=== PATIENT | female | born 1975 | race Caucasian/White ===

== ENCOUNTER 2020-01-20 02:51 | Inpatient (IN) | payer BC, OTHER ==
[~2020-01-20] VITALS: Ht 170.2 cm; Wt 117.6 kg
[2020-01-20] MEDS ORDERED: PROPOFOL 100 ML IV ONE (02:54)
[2020-01-20] MEDS ORDERED: PROPOFOL 100 ML IV PRN (03:00)
[2020-01-20] MEDS ORDERED: NOREPINEPHRINE 8 MG in SODIUM CHLORIDE 0.9% 242 ML IV PRN ×2 (03:00→06:31)
--- NOTE | 2020-01-20 03:22 | NUR ---
: Reagan Sweeney [phone]
--- NOTE | 2020-01-20 03:29 | NUR ---
LEVAPHED STOPED TO GET A ACCURATE PT B/P BASELINE. PT B/P MAP AT 73 AT THIS TIME ON 10MCG/KG/MIN PROPOFOL
[2020-01-20] MEDS ORDERED: PLEASE ENTER HEIGHT AND WEIGHT MC SCH (03:30)
[2020-01-20] MEDS ORDERED: PLEASE ENTER ALLERGIES MC SCH (03:30)
--- NOTE | 2020-01-20 04:20 | NUR ---
PT RETURNED BACK FROM CT WITH OUT INCEDENT. PT RESTING SUPINE ON BED ON VENT. PT B/P REMAINS ABOVE A MAP OF 65 WITHOUT LEVAPHED
--- NOTE | 2020-01-20 04:40 | NUR ---
PHILIPPE STATED "THAT THEY WHERE UNAWARE OF ANY MEDICATIONS THAT THE PT TAKES"
[2020-01-20] MEDS ORDERED: ACETAMINOPHEN 325 MG TABLET PO PRN (06:00)
[2020-01-20] MEDS ORDERED: ENOXAPARIN 30 MG/0.3 ML SQ SCH (06:00)
[2020-01-20] MEDS ORDERED: LACTATED RINGERS 1,000 ML IV SCH (06:00)
[2020-01-20] MEDS ORDERED: MAGNESIUM SULFATE/D5W 100 ML IVPB ONE (06:00)
[2020-01-20] MEDS ORDERED: SENNA/DOCUSATE TABLET NG PRN (07:00)
[2020-01-20] MEDS ORDERED: DEXTROSE 4 GM TAB.CHEW PO PRN (07:00)
[2020-01-20] MEDS ORDERED: LACTULOSE 20 GM/30 ML UDC NG PRN (07:00)
[2020-01-20] MEDS ORDERED: BISACODYL 10 MG SUPP PR PRN (07:00)
[2020-01-20] MEDS ORDERED: LIDOCAINE-MPF 1%, 2ML ENDO PRN (07:00)
[2020-01-20] MEDS ORDERED: SENNA 176 MG/5 ML ORAL SOL NG PRN (07:00)
[2020-01-20] MEDS ORDERED: DEXTROSE 50%, 50ML SYRINGE IVPush PRN (07:00)
[2020-01-20] MEDS ORDERED: GLUCAGON 1 MG IM PRN (07:00)
[2020-01-20] MEDS ORDERED: PHARMACY MAY ADJ FOR RENAL FX MC SCH (07:00)
[2020-01-20] MEDS ORDERED: HEPARIN 5,000 UNITS/ML, 1ML SQ SCH (07:00)
[2020-01-20 07:53] LABS: BASOPHILS # (AUTO) 0.07 x10^3/uL (0-0.1); BASOPHILS % (AUTO) 1 % (0-1); EOSINOPHILS # (AUTO) 0.09 x10^3/uL (0-0.4); EOSINOPHILS % (AUTO) 1 % (1-7); LYMPHOCYTES # (AUTO) 1.52 x10^3/uL (1-3.4); LYMPHOCYTES % (AUTO) 12 % (22-44); MD NO; MEAN CORPUSCULAR HEMOGLOBIN 31.5 pg (27.0-34.8); MEAN CORPUSCULAR HGB CONC 32.8 g/dL (32.4-35.8); MEAN CORPUSCULAR VOLUME 95.8 fL (80-100); MEAN PLATELET VOLUME 9.7 fL (7.4-10.4); MONOCYTES # (AUTO) 0.65 x10^3/uL (0.2-0.8); MONOCYTES % (AUTO) 5 % (2-9); NEUTROPHILS # (AUTO) 9.96 x10^3/uL (1.8-6.8); NEUTROPHILS % (AUTO) 81 % (42-75); PLATELET COUNT 208 x10^3/uL (130-400); RED BLOOD COUNT 4.27 x10^6/uL (3.82-5.3); RED CELL DISTRIBUTION WIDTH 13.6 % (9.6-15.2)
[2020-01-20 08:04] LABS: ANION GAP 7 mmol/L (5-15); CHLORIDE 111 mmol/L (98-107); CREATININE 0.75 mg/dL (0.55-1.02); SALICYLATE LEVEL 2.8 mg/dL (2.8-20.0)
[2020-01-20 08:07] LABS: TRIGLYCERIDES 100 mg/dL (50-200); TROPONIN I < 0.015 ng/mL (0.000-0.045)
[2020-01-20] MEDS ORDERED: ALBUTEROL/IPRATROPIUM 2.5MG/0.5MG, 3 ML INLINE SCH (08:30)
[2020-01-20 08:34] LABS: ACETONE, SERUM Negative (Negative)
[2020-01-20] MEDS ORDERED: FAMOTIDINE 20 MG/2 ML IVPush SCH (09:00)
[2020-01-20] MEDS: PANTOPRAZOLE 40 MG IV IV SCH (09:26)
[2020-01-20] MEDS: SODIUM CHLORIDE FLUSH 10ML SYR IVF SCH ×2 (09:27→21:46)
[2020-01-20] MEDS: ENOXAPARIN 40 MG/0.4 ML SQ SCH (09:27)
[2020-01-20] MEDS: FENTANYL PF 100 MCG/2ML IVPush PRN ×3 (09:55→18:47)
[2020-01-20] MEDS: PROPOFOL 100 ML IV PRN ×5 (09:56→22:26)
[2020-01-20] MEDS: ALBUTEROL/IPRATROPIUM 2.5MG/0.5MG, 3 ML INLINE SCH ×4 (10:10→22:33)
[2020-01-20 11:06] LABS: AMPHETAMINE SCREEN, URINE Positive (Negative); BARBITURATE SCREEN, URINE Negative (Negative); BENZODIAZEPINE SCREEN, URINE Positive (Negative); CANNABINOID SCREEN, URINE Negative (Negative); COCAINE SCREEN, URINE Negative (Negative); METHADONE SCREEN, URINE Negative (Negative); OPIATE SCREEN, URINE Negative (Negative)
[2020-01-20] MEDS ORDERED: SODIUM CHLORIDE 0.9% 1,000ML IVBOLUS ONE (12:00)
[2020-01-20] MEDS: AMPICILLIN/SULBACTAM 3 GM in SODIUM CHLORIDE 0.9% 100 ML IV SCH ×3 (12:06→23:28)
[2020-01-20 12:31] LABS: ALBUMIN 3.1 g/dL (3.4-5.0)
[2020-01-20 12:33] LABS: BILIRUBIN, DIRECT 0.1 mg/dL (0.1-0.2)
[2020-01-20 12:34] LABS: TROPONIN I < 0.015 ng/mL (0.000-0.045)
[2020-01-20 12:35] LABS: BILIRUBIN,INDIRECT 0.2 mg/dL (0.0-2.0); BILIRUBIN,TOTAL 0.3 mg/dL (0.2-1.0)
[2020-01-20] MEDS: FOLIC ACID 1 MG, THIAMINE 200 MG, MVI ADULT 10 ML in DEXTROSE 5% 1,000 ML IV SCH (15:19)
[2020-01-20] MEDS ORDERED: NICOTINE 21 MG/24 HR PATCH.TD24 TD ONE (20:00)
[2020-01-20] MEDS: MIDAZOLAM HCL 50 MG in SODIUM CHLORIDE 0.9% 40 ML IV PRN ×2 (20:19→22:26)
[2020-01-20] MEDS ORDERED: ZIPRASIDONE 20 MG INJ IM ONE ×2 (23:04→23:30)
[2020-01-21] MEDS: LORazepam 2 MG/ML, 1ML IM PRN ×4 (02:18→07:47)
[2020-01-21] MEDS: ALBUTEROL/IPRATROPIUM 2.5MG/0.5MG, 3 ML INLINE SCH ×6 (02:23→23:15)
[2020-01-21] MEDS ORDERED: LORazepam 2 MG/ML, 1ML IM PRN (03:30)
[2020-01-21 04:30] LABS: MEAN CORPUSCULAR HEMOGLOBIN 31.6 pg (27.0-34.8); MEAN CORPUSCULAR HGB CONC 33.6 g/dL (32.4-35.8); MEAN CORPUSCULAR VOLUME 94.2 fL (80-100); MEAN PLATELET VOLUME 9.9 fL (7.4-10.4); PLATELET COUNT 163 x10^3/uL (130-400); RED BLOOD COUNT 4.04 x10^6/uL (3.82-5.3); RED CELL DISTRIBUTION WIDTH 14.2 % (9.6-15.2)
[2020-01-21 04:37] LABS: ALBUMIN 3.1 g/dL (3.4-5.0); ANION GAP 9 mmol/L (5-15); CALCIUM 8.6 mg/dL (8.5-10.1); CHLORIDE 119 mmol/L (98-107); CREATININE 0.99 mg/dL (0.55-1.02)
[2020-01-21 04:54] LABS: BASOPHILS # (AUTO) 0.03 x10^3/uL (0-0.1); BASOPHILS % (AUTO) 0 % (0-1); EOSINOPHILS # (AUTO) 0.14 x10^3/uL (0-0.4); EOSINOPHILS % (AUTO) 1 % (1-7); LYMPHOCYTES # (AUTO) 1.29 x10^3/uL (1-3.4); LYMPHOCYTES % (AUTO) 7 % (22-44); MD SCAN; MONOCYTES # (AUTO) 0.95 x10^3/uL (0.2-0.8); MONOCYTES % (AUTO) 6 % (2-9); NEUTROPHILS # (AUTO) 15.04 x10^3/uL (1.8-6.8); NEUTROPHILS % (AUTO) 86 % (42-75)
[2020-01-21 05:13] VITALS: BP 120/50
[2020-01-21] MEDS ORDERED: DEXMEDETOMIDINE 200 MCG/2 ML NAS ONE (09:00)
[2020-01-21] MEDS ORDERED: HALOPERIDOL 5 MG/ML ONE (10:08)
[2020-01-21] MEDS ORDERED: HALOPERIDOL 5 MG/ML IV ONE (10:10)
[2020-01-21] MEDS ORDERED: MIDAZOLAM HCL 50 MG in SODIUM CHLORIDE 0.9% 40 ML IV PRN (11:11)
[2020-01-21] MEDS: PROPOFOL 100 ML IV PRN ×3 (11:12→17:05)
[2020-01-21] MEDS: PANTOPRAZOLE 40 MG IV IV SCH (11:23)
[2020-01-21] MEDS: ENOXAPARIN 40 MG/0.4 ML SQ SCH (11:23)
[2020-01-21] MEDS: SODIUM CHLORIDE FLUSH 10ML SYR IVF SCH ×2 (11:23→20:04)
[2020-01-21] MEDS ORDERED: SODIUM CHLORIDE 0.9%, 500ML IVBOLUS ONE (11:30)
[2020-01-21] MEDS ORDERED: PHARMACY MAY ADJ FOR RENAL FX MC SCH (11:30)
[2020-01-21] MEDS ORDERED: PROPOFOL 10 MG/ML, 20ML IVPush ONE (11:30)
[2020-01-21] MEDS ORDERED: LIDOCAINE-MPF 1%, 2ML ENDO PRN (11:30)
[2020-01-21] MEDS ORDERED: SENNA/DOCUSATE TABLET NG PRN (11:30)
[2020-01-21] MEDS ORDERED: HALOPERIDOL 5 MG/ML IV PRN (11:30)
[2020-01-21] MEDS ORDERED: SUCCINYLCHOLINE 20 MG/ML, 10ML IVPush ONE (11:30)
[2020-01-21] MEDS: AMPICILLIN/SULBACTAM 3 GM in SODIUM CHLORIDE 0.9% 100 ML IV SCH ×2 (12:16→19:44)
[2020-01-21 12:32] LABS: ANION GAP 8 mmol/L (5-15); CALCIUM 7.9 mg/dL (8.5-10.1); CHLORIDE 122 mmol/L (98-107)
[2020-01-21 12:34] LABS: TROPONIN I 0.116 ng/mL (0.000-0.045)
[2020-01-21] MEDS: FOLIC ACID 1 MG, THIAMINE 200 MG, MVI ADULT 10 ML in DEXTROSE 5% 1,000 ML IV SCH (13:05)
[2020-01-21] MEDS ORDERED: PROPOFOL 10 MG/ML, 100ML IV ONE (16:00)
[2020-01-21] MEDS ORDERED: PROPOFOL 10 MG/ML, 20ML ONE (16:00)
[2020-01-21] MEDS ORDERED: SUCCINYLCHOLINE 20 MG/ML, 10ML ONE (16:00)
[2020-01-21] MEDS ORDERED: ARIPIPRAZOLE 10 MG TABLET PO ONE (17:00)
[2020-01-21] MEDS ORDERED: VANCOMYCIN PER PHARMACY MC PRN (17:00)
[2020-01-21] MEDS ORDERED: LAMO200T6 PO (17:01)
[2020-01-21] MEDS ORDERED: CARI1.5C2 PO (17:01)
[2020-01-21] MEDS ORDERED: LISD30CA5 PO (17:01)
[2020-01-21] MEDS ORDERED: PHARMACOKINETIC CONSULTATION MC ONE (17:30)
[2020-01-21] MEDS ORDERED: VANCOMYCIN 2,500 MG in SODIUM CHLORIDE 0.9% 500 ML IV ONE (17:30)
[2020-01-21] MEDS ORDERED: PHARMACOKINETIC MONITORING MC PRN (17:30)
[2020-01-21 19:03] LABS: TROPONIN I 0.055 ng/mL (0.000-0.045)
[2020-01-21] MEDS: LAMOTRIGINE 200 MG TABLET PO SCH (20:04)
[2020-01-21] MEDS: ENOXAPARIN 30 MG/0.3 ML SQ SCH (20:04)
[2020-01-22] MEDS: PROPOFOL 100 ML IV PRN ×8 (00:42→22:54)
[2020-01-22] MEDS: AMPICILLIN/SULBACTAM 3 GM in SODIUM CHLORIDE 0.9% 100 ML IV SCH ×4 (02:09→20:10)
[2020-01-22] MEDS: ALBUTEROL/IPRATROPIUM 2.5MG/0.5MG, 3 ML INLINE SCH ×6 (02:20→22:08)
[2020-01-22 04:49] LABS: ALANINE AMINOTRANSFERASE 28 U/L (12-78); ALBUMIN 2.7 g/dL (3.4-5.0); ANION GAP 6 mmol/L (5-15); CHLORIDE 115 mmol/L (98-107); CREATININE 0.66 mg/dL (0.55-1.02)
[2020-01-22 04:52] LABS: ALKALINE PHOSPHATASE 51 U/L (45-117); BILIRUBIN,TOTAL 0.4 mg/dL (0.2-1.0); TOTAL PROTEIN 5.9 g/dL (6.4-8.2)
[2020-01-22 04:55] LABS: BASOPHILS # (AUTO) 0.05 x10^3/uL (0-0.1); BASOPHILS % (AUTO) 1 % (0-1); EOSINOPHILS # (AUTO) 0.26 x10^3/uL (0-0.4); EOSINOPHILS % (AUTO) 3 % (1-7); LYMPHOCYTES # (AUTO) 1.59 x10^3/uL (1-3.4); LYMPHOCYTES % (AUTO) 17 % (22-44); MD NO; MEAN CORPUSCULAR HEMOGLOBIN 31.7 pg (27.0-34.8); MEAN CORPUSCULAR HGB CONC 33.6 g/dL (32.4-35.8); MEAN CORPUSCULAR VOLUME 94.2 fL (80-100); MEAN PLATELET VOLUME 9.4 fL (7.4-10.4); MONOCYTES # (AUTO) 0.74 x10^3/uL (0.2-0.8); MONOCYTES % (AUTO) 8 % (2-9); NEUTROPHILS # (AUTO) 6.89 x10^3/uL (1.8-6.8); NEUTROPHILS % (AUTO) 72 % (42-75); PLATELET COUNT 234 x10^3/uL (130-400); RED BLOOD COUNT 3.74 x10^6/uL (3.82-5.3); RED CELL DISTRIBUTION WIDTH 14.3 % (9.6-15.2)
[2020-01-22] MEDS: VANCOMYCIN 2,000 MG in SODIUM CHLORIDE 0.9% 500 ML IV SCH ×2 (08:05→20:57)
[2020-01-22] MEDS: ENOXAPARIN 30 MG/0.3 ML SQ SCH ×2 (08:25→21:18)
[2020-01-22] MEDS: LAMOTRIGINE 200 MG TABLET PO SCH ×2 (08:25→21:18)
[2020-01-22] MEDS: ARIPIPRAZOLE 10 MG TABLET PO SCH (08:25)
[2020-01-22] MEDS: PANTOPRAZOLE 40 MG IV IV SCH (08:25)
[2020-01-22] MEDS: SODIUM CHLORIDE FLUSH 10ML SYR IVF SCH ×2 (08:27→21:18)
[2020-01-22] MEDS ORDERED: POTASSIUM CHLORIDE 10% 40 MEQ/30 ML UDC PO ONE (09:30)
[2020-01-22] MEDS: FENTANYL PF 100 MCG/2ML IVPush PRN ×2 (10:26→16:14)
[2020-01-22] MEDS: FOLIC ACID 1 MG, THIAMINE 200 MG, MVI ADULT 10 ML in DEXTROSE 5% 1,000 ML IV SCH (12:07)
[2020-01-22] MEDS ORDERED: HALOPERIDOL 5 MG/ML ONE (17:19)
[2020-01-22] MEDS: HALOPERIDOL 5 MG/ML IV PRN (17:20)
[2020-01-22] MEDS ORDERED: LORazepam 2 MG/ML, 1ML IVPush PRN (17:30)
[2020-01-22] MEDS: MIDAZOLAM HCL 50 MG in SODIUM CHLORIDE 0.9% 40 ML IV PRN (20:08)
[2020-01-23] MEDS: PROPOFOL 100 ML IV PRN ×3 (01:11→07:02)
[2020-01-23] MEDS: ALBUTEROL/IPRATROPIUM 2.5MG/0.5MG, 3 ML INLINE SCH ×2 (02:15→06:15)
[2020-01-23] MEDS: AMPICILLIN/SULBACTAM 3 GM in SODIUM CHLORIDE 0.9% 100 ML IV SCH ×4 (02:42→20:28)
[2020-01-23] MEDS: MIDAZOLAM HCL 50 MG in SODIUM CHLORIDE 0.9% 40 ML IV PRN (02:50)
[2020-01-23 03:56] LABS: BASOPHILS # (AUTO) 0.02 x10^3/uL (0-0.1); BASOPHILS % (AUTO) 0 % (0-1); EOSINOPHILS # (AUTO) 0.56 x10^3/uL (0-0.4); EOSINOPHILS % (AUTO) 7 % (1-7); LYMPHOCYTES # (AUTO) 1.42 x10^3/uL (1-3.4); LYMPHOCYTES % (AUTO) 18 % (22-44); MD NO; MEAN CORPUSCULAR HEMOGLOBIN 31.2 pg (27.0-34.8); MEAN CORPUSCULAR VOLUME 94.6 fL (80-100); MONOCYTES # (AUTO) 0.44 x10^3/uL (0.2-0.8); MONOCYTES % (AUTO) 6 % (2-9); NEUTROPHILS # (AUTO) 5.45 x10^3/uL (1.8-6.8); NEUTROPHILS % (AUTO) 69 % (42-75); PLATELET COUNT 204 x10^3/uL (130-400); RED BLOOD COUNT 3.56 x10^6/uL (3.82-5.3); RED CELL DISTRIBUTION WIDTH 14.1 % (9.6-15.2)
[2020-01-23 04:07] LABS: ALANINE AMINOTRANSFERASE 24 U/L (12-78); ALBUMIN 2.5 g/dL (3.4-5.0); ANION GAP 4 mmol/L (5-15); CHLORIDE 114 mmol/L (98-107)
[2020-01-23 04:10] LABS: ALKALINE PHOSPHATASE 49 U/L (45-117); BILIRUBIN,TOTAL 0.2 mg/dL (0.2-1.0); CALCIUM 7.9 mg/dL (8.5-10.1); CREATININE 0.64 mg/dL (0.55-1.02); TOTAL PROTEIN 5.7 g/dL (6.4-8.2)
[2020-01-23] MEDS: HALOPERIDOL 5 MG/ML IV PRN (08:21)
[2020-01-23] MEDS: ARIPIPRAZOLE 10 MG TABLET PO SCH (08:27)
[2020-01-23] MEDS: LAMOTRIGINE 200 MG TABLET PO SCH ×2 (08:27→22:10)
[2020-01-23] MEDS: SODIUM CHLORIDE FLUSH 10ML SYR IVF SCH ×2 (08:28→21:00)
[2020-01-23] MEDS: PANTOPRAZOLE 40 MG IV IV SCH (08:28)
[2020-01-23] MEDS ORDERED: ZIPRASIDONE 20 MG INJ IM ONE (09:00)
[2020-01-23] MEDS: VANCOMYCIN 2,000 MG in SODIUM CHLORIDE 0.9% 500 ML IV SCH (09:06)
[2020-01-23] MEDS: ENOXAPARIN 30 MG/0.3 ML SQ SCH ×3 (09:06→21:00)
[2020-01-23] MEDS ORDERED: ALBUTEROL/IPRATROPIUM 2.5MG/0.5MG, 3 ML NPPB PRN (09:30)
[2020-01-23] MEDS ORDERED: ZIPRASIDONE 20 MG INJ IM PRN (09:30)
[2020-01-23 20:33] VITALS: BP 132/80
[2020-01-24 01:59] VITALS: BP 137/87
[2020-01-24] MEDS: AMPICILLIN/SULBACTAM 3 GM in SODIUM CHLORIDE 0.9% 100 ML IV SCH ×4 (03:50→19:42)
[2020-01-24 06:45] VITALS: BP 109/73
[2020-01-24] MEDS: ARIPIPRAZOLE 10 MG TABLET PO SCH (09:00)
[2020-01-24] MEDS: ENOXAPARIN 30 MG/0.3 ML SQ SCH ×2 (09:00→19:39)
[2020-01-24] MEDS: SODIUM CHLORIDE FLUSH 10ML SYR IVF SCH ×2 (09:02→19:43)
[2020-01-24] MEDS: PANTOPRAZOLE 40 MG IV IV SCH (09:02)
[2020-01-24] MEDS: LAMOTRIGINE 200 MG TABLET PO SCH ×2 (09:04→19:39)
[2020-01-24 14:16] VITALS: BP 136/87
[2020-01-24 21:40] VITALS: BP 122/76
[2020-01-25 01:12] VITALS: BP 139/77
[2020-01-25] MEDS: AMPICILLIN/SULBACTAM 3 GM in SODIUM CHLORIDE 0.9% 100 ML IV SCH ×5 (02:18→20:47)
[2020-01-25 06:35] VITALS: BP 134/89
[2020-01-25] MEDS: LAMOTRIGINE 200 MG TABLET PO SCH ×2 (07:55→20:48)
[2020-01-25] MEDS: ARIPIPRAZOLE 10 MG TABLET PO SCH (07:56)
[2020-01-25] MEDS: SODIUM CHLORIDE FLUSH 10ML SYR IVF SCH ×2 (07:56→20:48)
[2020-01-25] MEDS: PANTOPRAZOLE 40 MG IV IV SCH (07:59)
[2020-01-25] MEDS: ENOXAPARIN 30 MG/0.3 ML SQ SCH ×2 (08:00→20:48)
[2020-01-25 12:53] VITALS: BP 123/86
[2020-01-25 18:47] VITALS: BP 145/93
[2020-01-26 01:19] VITALS: BP 109/69
[2020-01-26] MEDS: AMPICILLIN/SULBACTAM 3 GM in SODIUM CHLORIDE 0.9% 100 ML IV SCH ×3 (02:44→14:51)
[2020-01-26 05:33] LABS: BASOPHILS # (AUTO) 0.06 x10^3/uL (0-0.1); BASOPHILS % (AUTO) 1 % (0-1); EOSINOPHILS # (AUTO) 0.55 x10^3/uL (0-0.4); EOSINOPHILS % (AUTO) 7 % (1-7); LYMPHOCYTES % (AUTO) 26 % (22-44); MD NO; MEAN CORPUSCULAR HEMOGLOBIN 31.3 pg (27.0-34.8); MEAN CORPUSCULAR HGB CONC 33.2 g/dL (32.4-35.8); MEAN CORPUSCULAR VOLUME 94.2 fL (80-100); MEAN PLATELET VOLUME 9.3 fL (7.4-10.4); MONOCYTES % (AUTO) 9 % (2-9); NEUTROPHILS # (AUTO) 4.32 x10^3/uL (1.8-6.8); NEUTROPHILS % (AUTO) 57 % (42-75); PLATELET COUNT 258 x10^3/uL (130-400); RED CELL DISTRIBUTION WIDTH 13.6 % (9.6-15.2)
[2020-01-26 05:34] LABS: ALBUMIN 2.9 g/dL (3.4-5.0); ANION GAP 5 mmol/L (5-15); CALCIUM 8.5 mg/dL (8.5-10.1); CHLORIDE 110 mmol/L (98-107)
[2020-01-26 05:37] LABS: ALANINE AMINOTRANSFERASE 69 U/L (12-78); ALKALINE PHOSPHATASE 55 U/L (45-117); BILIRUBIN,TOTAL 0.4 mg/dL (0.2-1.0); CREATININE 0.56 mg/dL (0.55-1.02); TOTAL PROTEIN 6.6 g/dL (6.4-8.2)
[2020-01-26] MEDS ORDERED: PANTOPRAZOLE 40MG TABLET PO SCH (06:00)
[2020-01-26 06:30] VITALS: BP 110/71
[2020-01-26] MEDS: ENOXAPARIN 30 MG/0.3 ML SQ SCH ×2 (09:17→20:23)
[2020-01-26] MEDS: LAMOTRIGINE 200 MG TABLET PO SCH ×2 (09:17→20:23)
[2020-01-26] MEDS: ARIPIPRAZOLE 10 MG TABLET PO SCH (09:18)
[2020-01-26] MEDS: SODIUM CHLORIDE FLUSH 10ML SYR IVF SCH ×2 (09:18→20:24)
[2020-01-26 12:20] VITALS: BP 113/75
[2020-01-26 18:41] VITALS: BP 154/94
== END 2020-01-26 21:05 | DRG 917 ==
LOC: ED 03:18 → EDIP 04:44 → CCU 05:25 → 5SO 01-23 18:26
PROVIDERS: ADMIT Family Medicine; ATTEND Internal Medicine
PROC: 5A1935Z Respiratory Ventilation, Less than 24 Consecutive Hours (ICD-10-PCS; 2020-01-20)
PROC: 0BH17EZ Insertion of Endotracheal Airway into Trachea, Via Natural or Artificial Opening (ICD-10-PCS; 2020-01-20)
PROC: 5A1945Z Respiratory Ventilation, 24-96 Consecutive Hours (ICD-10-PCS; principal; 2020-01-21)
PROC: 02H633Z Insertion of Infusion Device into Right Atrium, Percutaneous Approach (ICD-10-PCS; 2020-01-21)
PROC: B548ZZA Ultrasonography of Superior Vena Cava, Guidance (ICD-10-PCS; 2020-01-21)
DX: T42.6X2A Poisoning by other antiepileptic and sedative-hypnotic drugs, intentional self-harm, initial encounter (principal); J96.01 Acute respiratory failure with hypoxia; J69.0 Pneumonitis due to inhalation of food and vomit; G92 Toxic encephalopathy; E87.2 Acidosis; Z94.0 Kidney transplant status; Z99.11 Dependence on respirator [ventilator] status; Z68.41 Body mass index [BMI] 40.0-44.9, adult; E66.9 Obesity, unspecified; F17.210 Nicotine dependence, cigarettes, uncomplicated; Z78.1 Physical restraint status; Z79.899 Other long term (current) drug therapy; Z91.5 Personal history of self-harm; F31.9 Bipolar disorder, unspecified; Y92.89 Other specified places as the place of occurrence of the external cause
CPT/HCPCS: 36415; 36600; 70450; 71045; 72125; 80048; 80053; 80076; 80307; 82010; 82040; 82140; 82533; 82803; 83605; 83735; 84100; 84145; 84478; 84484; 85025; 87040; 87070; 87077; 87081; 87186; 87205; 93005; 94002; 94003; 94640; 96374; G0378; J0295; J1650; J2250; J2704; J3010; J3370; J3411; J3486; J7070; C9113; J0330; J1630; J2060; J7030; J7040; J7120

== ENCOUNTER 2020-01-26 19:57 | Inpatient (IN) | payer BC ==
[~2020-01-26] VITALS: Ht 170.2 cm; Wt 114.5 kg
[~2020-01-26 19:57] MED LIST: CARI1.5C2 PO; LAMO200T6 PO; LISD30CA5 PO
[2020-01-26] MEDS ORDERED: DOCUSATE 100 MG CAPSULE PO PRN (20:30)
[2020-01-26] MEDS ORDERED: ONDANSETRON ODT 4 MG PO PRN (20:30)
[2020-01-26] MEDS ORDERED: POLYETHYLENE GLYCOL 17 GM PACKET PO PRN (20:30)
[2020-01-26] MEDS ORDERED: BISACODYL 10 MG SUPP PR PRN (20:30)
[2020-01-26 21:10] VITALS: BP 114/78
[2020-01-26] MEDS ORDERED: AMPICILLIN/SULBACTAM 3 GM in SODIUM CHLORIDE 0.9% 100 ML IV ONE (22:48)
[2020-01-26] MEDS ORDERED: AMPICILLIN/SULBACTAM 3 GM in SODIUM CHLORIDE 0.9% 100 ML IV SCH (23:00)
[2020-01-26] MEDS: LAMOTRIGINE 200 MG TABLET PO SCH (23:02)
[2020-01-26 23:45] LABS: ALBUMIN 3.1 g/dL (3.4-5.0); BILIRUBIN, DIRECT 0.1 mg/dL (0.1-0.2)
[2020-01-27 00:11] LABS: BILIRUBIN,INDIRECT 0.1 mg/dL (0.0-2.0); BILIRUBIN,TOTAL 0.2 mg/dL (0.2-1.0); CHOL/HDL RATIO 10.2; FREE T4 (FREE THYROXINE) 1.3 ng/dL (0.76-1.46); LDL/HDL RATIO 6.5 (0.5-3.0); TOTAL PROTEIN 6.2 g/dL (6.4-8.2)
[2020-01-27 01:19] VITALS: BP 114/78
[2020-01-27] MEDS: ACETAMINOPHEN 325 MG TABLET PO PRN (03:22)
[2020-01-27 07:48] VITALS: BP 111/77
[2020-01-27] MEDS: NICOTINE 7 MG/24 HR PATCH.TD24 TD SCH (08:00)
[2020-01-27] MEDS: LAMOTRIGINE 200 MG TABLET PO SCH ×2 (08:44→20:15)
[2020-01-27] MEDS: ARIPIPRAZOLE 15 MG TABLET PO SCH (15:49)
[2020-01-27 19:41] VITALS: BP 111/73
[2020-01-27] MEDS: ATORVASTATIN 40 MG TABLET PO SCH (20:15)
[2020-01-27 21:29] LABS: MICROSCOPIC NOT IND
[2020-01-27 21:36] LABS: CULTURE INDICATED? NO
[2020-01-28] MEDS: ACETAMINOPHEN 325 MG TABLET PO PRN (05:15)
[2020-01-28 07:27] VITALS: BP 119/70
[2020-01-28] MEDS: NICOTINE 7 MG/24 HR PATCH.TD24 TD SCH (08:00)
[2020-01-28] MEDS: ARIPIPRAZOLE 15 MG TABLET PO SCH (08:39)
[2020-01-28] MEDS: LAMOTRIGINE 200 MG TABLET PO SCH ×3 (08:40→22:00)
[2020-01-28] MEDS: BUPROPION SR 100 MG TABLET PO SCH (12:09)
[2020-01-28 19:43] VITALS: BP 108/72
[2020-01-28] MEDS: ATORVASTATIN 40 MG TABLET PO SCH (22:00)
[2020-01-29 07:25] VITALS: BP 106/71
[2020-01-29] MEDS: LAMOTRIGINE 200 MG TABLET PO SCH ×2 (08:15→20:12)
[2020-01-29] MEDS: BUPROPION SR 100 MG TABLET PO SCH ×2 (08:15→12:48)
[2020-01-29] MEDS: ARIPIPRAZOLE 15 MG TABLET PO SCH (08:15)
[2020-01-29] MEDS: NICOTINE 7 MG/24 HR PATCH.TD24 TD SCH (08:16)
[2020-01-29] MEDS ORDERED: BUPR-173 PO (10:01)
[2020-01-29] MEDS ORDERED: ARIP15TA3 PO (10:01)
[2020-01-29] MEDS ORDERED: ATOR40TA78 PO (10:01)
[2020-01-29] MEDS ORDERED: LAMO200T6 PO (10:01)
[2020-01-29] MEDS ORDERED: NICO-485 TD (10:01)
[2020-01-29] MEDS ORDERED: CLON0.1T22 PO (10:01)
[2020-01-29 20:00] VITALS: BP 109/75
[2020-01-29] MEDS: ATORVASTATIN 40 MG TABLET PO SCH (20:12)
[2020-01-29] MEDS: ACETAMINOPHEN 325 MG TABLET PO PRN (20:12)
[2020-01-30 07:28] VITALS: BP 102/75
[2020-01-30] MEDS: NICOTINE 7 MG/24 HR PATCH.TD24 TD SCH (08:00)
[2020-01-30] MEDS: ARIPIPRAZOLE 15 MG TABLET PO SCH (08:25)
[2020-01-30] MEDS: LAMOTRIGINE 200 MG TABLET PO SCH (08:25)
[2020-01-30] MEDS: BUPROPION SR 100 MG TABLET PO SCH (08:27)
== END 2020-01-30 10:30 | disposition home or self-care (01) | DRG 885 ==
LOC: 3E 22:16
PROVIDERS: ADMIT Psychiatry & Neurology Psychosomatic Medicine; ATTEND Psychiatry & Neurology Psychosomatic Medicine
DX: F31.60 Bipolar disorder, current episode mixed, unspecified (principal); F15.20 Other stimulant dependence, uncomplicated; R45.851 Suicidal ideations; Z94.0 Kidney transplant status; F10.21 Alcohol dependence, in remission; F12.20 Cannabis dependence, uncomplicated; F17.210 Nicotine dependence, cigarettes, uncomplicated; F41.9 Anxiety disorder, unspecified; E66.01 Morbid (severe) obesity due to excess calories; E78.1 Pure hyperglyceridemia; G47.00 Insomnia, unspecified; E78.5 Hyperlipidemia, unspecified; Z79.899 Other long term (current) drug therapy; Z83.3 Family history of diabetes mellitus; Z82.0 Family history of epilepsy and other diseases of the nervous system; Z91.5 Personal history of self-harm; Z71.6 Tobacco abuse counseling
CPT/HCPCS: 36415; 80061; 80076; 81003; 82607; 84439; 84443; J0295